=== PATIENT | female | born 1965 | race Caucasian/White ===

== ENCOUNTER → 2022-05-18 10:42 | Outpatient (CLI) | payer OTHER, SELFPAY ==
--- NOTE | ~2022-05-18 | US_ITS ---
US renal BI 05/18/2022 11:02 Procedure: Realtime transabdominal ultrasound of the kidneys and bladder. Indication: Right flank pain with hematuria. Comparison: CT dated 06/11/2011 Findings: Renal echotexture is normal bilaterally without hydronephrosis, contour deforming mass or r enal calculus. The right kidney measures 10.5 cm and left kidney measures 10.9 cm. Bladder within no rmal limits. Impression: 1: Unremarkable renal ultrasound. No stones, masses or hydronephrosis. Reviewed, dictated and finalized at location B. ROFIT DIRECTOR Impression: 1: Unremarkable renal ultrasound. No stones, masses or hydronephrosis.
== END ==
PROVIDERS: PCP Family Medicine; Visit Provider Family Medicine
DX: R31.9 Hematuria, unspecified (principal)
CPT/HCPCS: 76775